=== PATIENT | female | born 2000 | race Native Hawaiian/Other Pacific Islander ===

== ENCOUNTER 2021-07-01 16:52 | Emergency (ER) | payer BC, MEDICAID ==
[2021-07-01 17:02] VITALS: BP 129/82
[2021-07-01] MEDS ORDERED: CLINDAMYCIN 150 MG CAPSULE PO STA (17:23)
--- NOTE | 2021-07-01 17:25 | ED Physician Documentation ---
History of Present Illness - Stated complaint Stated Complaint: BREAST PIERCING INFECTION - Chief complaint Chief Complaint: Wound - History obtained from History obtained from: Patient - History of Present Illness Timing: How many weeks ago (1) Pain level max: 3 Pain level now: 0 - Additonal information Additional information: Patient is a 20-year-old female who complains of a possible infection to her right nipple piercing. She states the nipple piercing was about 5 months ago, but over the past week she noticed swelling, redness and some drainage yesterday. She states less drainage today. No fevers. No chills. Nothing makes it better or worse. She is not , breast-feeding or trying to bec ome . Review of Systems Constitutional: denies: Fever, Chills GI: denies: Vomiting, Diarrhea : denies: Now EGA Skin: denies: Rash Musculoskeletal: denies: Neck pain, Back pain Neurologic: denies: Headache PD PAST MEDICAL HISTORY - Past Medical History Past Medical History: Yes Respiratory: Asthma MANAGED CARE LIAISON: Ovarian cysts - Past Surgical History Past Surgical History: No /MANAGED CARE LIAISON: Other - Present Medications Home Medications: Ambulatory Orders Medication Instructions Recorded Confirmed Albuterol Sulfate [Albuterol 1 puffs PO Q4HR PRN 12/25/13 10/08/14 Sulfate Hfa] Nitrofurantoin Monohyd/M-Cryst 100 mg PO BID 5 Days capsule 02/22/16 [Macrobid 100 mg Capsule] clindamycin HCL [Cleocin HCl] 300 mg PO Q6H #40 cap 07/01/21 - Allergies Allergies/Adverse Reactions: Allergies Allergy/AdvReac Type Severity Reaction Status Date / Time Penicillins Allergy Unknown Verified 07/01/21 17:02 amoxicillin [Amoxicillin] AdvReac Mild Nausea Verified 03/19/14 20:03 - Social History Does the pt smoke?: No Smoking Status: Never smoker Does the pt drink ETOH?: No Does the pt have substance abuse?: No - Immunizations Immunizations are current?: Yes - POLST Patient has POLST: No PD ED PE NORMAL - Vitals Vital signs reviewed: Yes - General General: Alert and oriented X 3, No acute distress - Neck Neck: Supple, no meningeal sign - Cardiac Cardiac: RRR - Respiratory Respiratory: No respiratory distress, Clear bilaterally - Derm Derm: Warm and dry - Neuro Neuro: Alert and oriented X 3 - Free text exam Free text exam: Right nipple has a barbell piercing in place. There is mild erythema. No drain age. No palpable abscess in the breast. Otherwise normal examination of the breast. Results - Vitals Vitals: Vital Signs - 24 hr 07/01/21 16:56 Temperature 36.9 C Heart Rate 108 H Respiratory 16 Rate Blood Pressure 129/82 H O2 Saturation 97 Oxygen O2 Source Room air PD MEDICAL DECISION MAKING - ED course Complexity details: considered differential, d/w patient ED course: Appears to have mild cellulitis of the right breast. She is allergic to penicillins, we will place her on clindamycin. There does not appear to be an abscess at this time. There is no deeper breast abscess. No tenderness with palpation. The patient was counseled that she may need to remove the piercing if she is not improving. Patient counseled regarding signs and symptoms for which I believe and urgent re-evaluation would be necessary. Patient with good understanding of and agreement to plan and is comfortable going home at this time This document was made in part using voice recognition software. While efforts are made to proofread this document, sound alike and grammatical errors may occur. Departure - Departure Disposition: 01 Home, Self Care Clinical Impression: Cellulitis Qualifiers: Site of cellulitis: trunk Site of cellulitis of trunk: chest wall Qualified Code(s): L03.313 - Cellulitis of chest wall Condition: Good Instructions: ED Infec Skin Cellulitis Follow-Up: your,doctor in 1 week [Other] Prescriptions: clindamycin HCL [Cleocin HCl] 300 mg PO Q6H #40 cap Comments: Your antibiotics were sent to [facility] in [place]. Take all until gone. Return if you worsen. Follow-up with your doctor in 1 week for recheck. Discharge Date/Time: 07/01/21 17:42
== END 2021-07-01 17:42 | disposition home or self-care (01) ==
LOC: ED 16:52
DX: N61.0 Mastitis without abscess (principal)
CPT/HCPCS: 99282; 99283; A9270

== ENCOUNTER 2021-11-26 08:00 | Outpatient (CLI) | payer MEDICAID | END 2021-11-26 23:59 | disposition home or self-care (01) | LOC: LAB.N 08:00 | PROVIDERS: ATTEND Registered Nurse | DX: L03.90 Cellulitis, unspecified (principal) | CPT/HCPCS: 87070; 87205 ==

== ENCOUNTER 2022-02-18 21:50 | Emergency (ER) | payer MEDICAID ==
--- NOTE | 2022-02-18 23:36 | ED Physician Documentation ---
PD HPI CHEST PAIN - Stated complaint Stated Complaint: L CHEST PAIN - Chief complaint Chief Complaint: General - History obtained from History obtained from: Patient - History of Present Illness Timing - onset: How many weeks ago (1) Timing - details: Abrupt onset Quality: Pain Location: Left chest Radiation: Other (does not radiate) Associated symptoms: No: Shortness of air, Diaphoresis, Nausea, Vomiting, Feeling faint / dizzy, General Weakness, Palpitations, Cough Similar symptoms before: Has not had sx before Recently seen: Not recently seen - Additional information Additional information: patient had sudden onset of left anterolateral chest wall pain when stretching. Initially mild/moderate pain, was improving, but worsening and becoming more focal to left breast over past 1-2 days. Denies dyspnea, cough, fever. Pain is distinctly worse with palpation. No pleuritic component. Review of Systems Constitutional: denies: Fever, Chills, Sweats Cardiac: reports: Chest pain / pressure. 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 - Past Surgical History Past Surgical History: No /SOURCE INSPECTOR: Other - Present Medications Home Medications: Ambulatory Orders Medication Instructions Recorded Confirmed No Known Home Medications 02/18/22 02/18/22 - Allergies Allergies/Adverse Reactions: Allergies Allergy/AdvReac Type Severity Reaction Status Date / Time Penicillins Allergy Unknown Verified 02/18/22 21:52 amoxicillin [Amoxicillin] AdvReac Mild Nausea Verified 02/18/22 21:52 - Social History Does the pt smoke?: No Smoking Status: Never smoker Does the pt drink ETOH?: No Does the pt have substance abuse?: No - Immunizations Immunizations are current?: Yes - POLST Patient has POLST: No PD ED PE NORMAL - Vitals Vital signs reviewed: Yes - General General: Alert and oriented X 3, No acute distress, Well developed/nourished - Cardiac Cardiac: RRR, No murmur - Respiratory Respiratory: No respiratory distress, Clear bilaterally - Abdomen Abdomen: Soft, Non tender PD ED PE EXPANDED - Cardiac Cardiac: Other (central services tech present for left breast exam; no visible swelling, no erythema, no tenderness to palpation) Results - Vitals Vitals: Oxygen O2 Source Room air PD MEDICAL DECISION MAKING - ED course Complexity details: considered differential, d/w patient ED course: HPI is strongly suggestive of chest wall strain and there are no elements of HPI/ROS nor findings on physical exam to suggest alternative diagnosis. At this time emergent testing is unlikely to yield diagnosis or alter conservative management (rest, NSAIDs, return if worse, follow up with primary care provider). Departure - Departure Disposition: 01 Home, Self Care Clinical Impression: Strain of chest wall Qualifiers: Encounter type: initial encounter Qualified Code(s): S29.011A - Strain of muscle and tendon of front wall of thorax, initial encounter Condition: Good Instructions: ED Chest Pain NonCardiac Discharge Date/Time: 02/19/22 00:01
[2022-02-18 23:56] VITALS: BP 114/69
[2022-02-18] MEDS ORDERED: IBUPROFEN 600 MG TABLET PO STA (23:56)
== END 2022-02-19 00:01 | disposition home or self-care (01) ==
LOC: ED 21:50
DX: S29.011A Strain of muscle and tendon of front wall of thorax, initial encounter (principal); X58.XXXA Exposure to other specified factors, initial encounter
CPT/HCPCS: 99282; A9270

== ENCOUNTER 2022-05-23 23:03 | Emergency (ER) | payer MEDICAID ==
--- NOTE | 2022-05-23 23:18 | ED Physician Documentation ---
PD HPI FEMALE - Stated complaint Stated Complaint: FEMALE - Chief complaint Chief Complaint: General - History obtained from History obtained from: Patient - Additional information Additional information: HPI from patient. Patient says her last menstrual period began last week, approximately May 15. She says it lasted a typical number of days for her usual period. However, although her menstrual period then finished 4 to 5 days ago, she noted some vaginal bleeding starting again last night. She denies any pain, denies any cramping. She strongly denies chance of . She notes that she has no problems with urinating, such as burning or discomfort with urination, urinary frequency, but she does notice some light pink blood on the toilet paper when she wipes after urinating. As such, she says she is not certain whether the blood is coming from her vagina or from the urine. She denies history of these types of symptoms and this situation; for example, she says she has not started bleeding again only four or five days after completing a period. She tells me that she was too embarrassed to mention this to the triage nurse, but one of her chief concerns is whether or not she sustained some sort of cut, laceration, or abrasion yesterday after using a toy in her vagina. She says it certainly was without any sharp parts, but she wonders if she perhaps cut somewhere inside of her vagina with her fingernail when using the implement, and thus perhaps this would be the source of the bleeding. Review of Systems : reports: LMP (started 05/15/22, ended 4-5 days ago), Vaginal bleeding. 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 - Past Surgical History Past Surgical History: No /ANALOG IC DESIGN ENGINEER: Other - Present Medications Home Medications: Ambulatory Orders Medication Instructions Recorded Confirmed No Known Home Medications 02/18/22 05/23/22 - Allergies Allergies/Adverse Reactions: Allergies Allergy/AdvReac Type Severity Reaction Status Date / Time Penicillins Allergy Unknown Verified 05/23/22 23:07 amoxicillin [Amoxicillin] AdvReac Mild Nausea Verified 05/23/22 23:07 - Social History Does the pt smoke?: No Smoking Status: Never smoker Does the pt drink ETOH?: No Does the pt have substance abuse?: No - Immunizations Immunizations are current?: Yes - POLST Patient has POLST: No PD ED PE NORMAL - Vitals Vital signs reviewed: Yes - General General: Alert and oriented X 3, No acute distress, Well developed/nourished - Abdomen Abdomen: Soft, Non tender - Derm Derm: Normal color PD ED PE EXPANDED - Female Female : Normal external, Normal exam, Vaginal Bleeding, Customer Servicer present (RN Tommy), Other. No: Skin lesions, Vaginal Discharge, Dilated cervix, Tissue present Results - Vitals Vitals: Vital Signs - 24 hr 05/23/22 05/24/22 23:07 00:32 Temperature 37.2 C Heart Rate 93 97 Respiratory 16 16 Rate Blood Pressure 135/73 H 122/68 O2 Saturation 100 100 Oxygen O2 Source Room air - Labs Labs: Laboratory Tests 05/23/22 23:20 Urine Color YELLOW Urine Clarity CLEAR Urine pH 7.0 Ur Specific [place] 1.010 Urine Protein NEGATIVE Urine Glucose (UA) NEGATIVE Urine Ketones NEGATIVE Urine Occult Blood SMALL H Urine Nitrite NEGATIVE Urine Bilirubin NEGATIVE Urine Urobilinogen 0.2 (NORMAL) Ur Leukocyte Esterase NEGATIVE Urine RBC 0-5 Urine WBC 0-3 Ur Squamous Epith Cells FEW Squamous Urine Bacteria Rare Ur Microscopic Review INDICATED Urine Culture Comments NOT INDICATED Urine HCG, Qual NEGATIVE PD Medical Decision Making - ED course Complexity details: reviewed results, considered differential ED course: unremarkable urinalysis except for small occult blood (macro; no RBC on micro). UHCG negative. Pelvic exam performed with results as noted above and physical exam. There is scant bleeding from a closed cervical os. There is trace blood in posterior vaginal vault without any evidence of abrasion, laceration, or other bleeding vaginal lesion. Aside from the urinalysis and urine hCG, other emergent testing is not indicated at this time; she does not describe any significant blood loss to suggest realistic possibility of blood loss anemia. I advised her to follow-up with her primary care provider or, if she cannot arrange so, her pattern finisher. Return precautions regarding emergency department return were reviewed.The cause of her abnormal vaginal bleeding is not apparent at this time. Departure - Departure Disposition: 01 Home, Self Care Clinical Impression: Abnormal uterine bleeding Condition: Good Instructions: ED Bleed Irregular Vaginal Comments: There were no concerning findings on your urinalysis except, as expected, a very small amount of blood was detected. As we discussed, this does not make it any more clear whether the blood is from a urinary source (such as the bladder) or vaginal bleeding that was dragged into the urinalysis. I believe the second option is more likely, given the finding of a very trace amount of bleeding on the vaginal exam. Your test (urine) was negative. As for your last menstrual period having stopped 4 or 5 days ago just to have some vaginal bleeding return yesterday, this is of course not a normal situation. You had a trace amount of blood coming from the opening of the cervix (os). On the pelvic exam, I did not detect any abrasions or lacerations in the vagina. However, further emergency testing is not likely to be helpful at this time. As we discussed, I recommend that you contact your primary care provider, or, if you are established with 1, your pattern finisher. You should contact 1 or both of these physicians's offices in the morning when the office opens, to arrange for the next available appointment. Certainly, if your symptoms persist or worsen, further testing might be indicated. Lastly, should your symptoms significantly worsen, or if new/concerning signs/symptoms develop, you can always return to the emergency department (such as fever, severe vaginal bleeding, lightheadedness, shortness of breath.) Discharge Date/Time: 05/24/22 00:32
[2022-05-23 23:28] LABS: BILIRUBIN,URINE NEGATIVE (NEGATIVE); GLUCOSE, URINE (UA) NEGATIVE (NEGATIVE); KETONES,URINE (UA) NEGATIVE (NEGATIVE); LEUKOCYTE ESTERASE, URINE NEGATIVE (NEGATIVE); NITRITE,URINE NEGATIVE (NEGATIVE); OCCULT BLOOD,URINE SMALL (NEGATIVE); PROTEIN,URINE NEGATIVE (NEGATIVE); UROBILINOGEN,URINE 0.2 (NORMAL) E.U./dL (NORMAL)
[2022-05-23 23:30] LABS: CLARITY,URINE CLEAR (CLEAR)
[2022-05-23 23:31] LABS: HCG UR QUAL NEGATIVE
[2022-05-23 23:36] LABS: BACTERIA,URINE Rare /HPF (None Seen); RBC,URINE 0-5 /HPF (0-5); SQUAMOUS EPITHELIAL CELL,UR FEW Squamous (<= Few); WBC,URINE 0-3 /HPF (0-5)
[2022-05-24 00:33] VITALS: BP 122/68
== END 2022-05-24 00:32 | disposition home or self-care (01) ==
LOC: ED 23:03
DX: N93.9 Abnormal uterine and vaginal bleeding, unspecified (principal)
CPT/HCPCS: 81001; 81003; 81025; 87086; 99283

== ENCOUNTER 2022-05-30 08:00 | Outpatient (CLI) | payer MEDICAID ==
[2022-05-30 12:16] LABS: BASOPHILS % (AUTO) 0.5 %; EOSINOPHILS # (AUTO) 0.1 10^3/uL (0.0-0.7); HCT - HEMATOCRIT 39.4 % (37.0-47.0); HGB - HEMOGLOBIN 12.9 g/dL (12.0-16.0); LYMPHOCYTES # (AUTO) 2.5 10^3/uL (1.5-3.5); MEAN CORPUSCULAR HEMOGLOBIN 29.2 pg (27.0-31.0); MEAN CORPUSCULAR HGB CONC 32.7 g/dL (32.0-36.0); MEAN CORPUSCULAR VOLUME 89.1 fL (81.0-99.0); MEAN PLATELET VOLUME 9.9 fL (7.9-10.8); MONOCYTES # (AUTO) 0.5 10^3/uL (0.0-1.0); MONOCYTES % (AUTO) 8.6 %; NEUTROPHILS # (AUTO) 2.9 10^3/uL (1.5-6.6); NEUTROPHILS % (AUTO) 47.4 %; PLT - PLATELET COUNT 352 10^3/uL (130-450); RED BLOOD COUNT 4.42 10^6/uL (4.20-5.40); RED CELL DISTRIBUTION WIDTH 12.3 % (12.0-15.0)
[2022-05-30 12:32] LABS: ALBUMIN 4.5 g/dL (3.2-5.5); ALBUMIN/GLOBULIN RATIO 1.3 (1.0-2.2); BILIRUBIN,TOTAL 0.5 mg/dL (0.2-1.0); CALCIUM 9.9 mg/dL (8.5-10.3); CREATININE 0.6 mg/dL (0.4-1.0); POTASSIUM 3.8 mmol/L (3.5-5.0)
[2022-05-30 12:39] LABS: HCG,QUALITATIVE BLOOD NEGATIVE
== END 2022-05-30 23:59 | disposition home or self-care (01) ==
LOC: LAB.N 08:00
PROVIDERS: ATTEND Nurse Practitioner
DX: N93.9 Abnormal uterine and vaginal bleeding, unspecified (principal)
CPT/HCPCS: 36415; 80053; 84703; 85025